=== PATIENT | female | born 1935 | race Caucasian/White ===

== ENCOUNTER 2020-04-07 20:30 | Emergency (ER) | payer MEDICARE, OTHER ==
[~2020-04-07] VITALS: Ht 160 cm; Wt 68.0 kg
[2020-04-07 20:40] VITALS: Ht 160 cm; Wt 68.0 kg
[2020-04-07 22:23] VITALS: BP 164/80
== END 2020-04-07 22:23 | disposition home or self-care (01) ==
LOC: ED 20:30
DX: S81.812A Laceration without foreign body, left lower leg, initial encounter (principal); I10 Essential (primary) hypertension; E11.9 Type 2 diabetes mellitus without complications; E78.5 Hyperlipidemia, unspecified; X58.XXXA Exposure to other specified factors, initial encounter; Y93.89 Activity, other specified; Y92.89 Other specified places as the place of occurrence of the external cause; Y99.8 Other external cause status
CPT/HCPCS: 90715